=== PATIENT | male | born 1970 | race Caucasian/White ===

== ENCOUNTER 2018-02-12 09:22 | Emergency (ER) | payer MEDICAID ==
[~2018-02-12] VITALS: Ht 165.1 cm; Wt 74.8 kg
[2018-02-12 09:32] VITALS: Ht 165.1 cm; Wt 74.8 kg
[2018-02-12 11:32] VITALS: BP 130/64
== END 2018-02-12 09:32 | disposition home or self-care (01) ==
LOC: ED 09:22
DX: S50.01XA Contusion of right elbow, initial encounter (principal); V98.8XXA Other specified transport accidents, initial encounter; Y93.89 Activity, other specified; Y92.89 Other specified places as the place of occurrence of the external cause; Y99.8 Other external cause status